=== PATIENT | female | born 1995 | race Two or more races ===

== ENCOUNTER 2018-01-28 18:16 | Emergency (ER) | payer MEDICAID ==
[2018-01-28] MEDS ORDERED: FAMOTIDINE 20 MG TABLET PO ONE (20:25)
[2018-01-28] MEDS ORDERED: METOCLOPRAMIDE HCL ORAL SOLN 10 MG/10 ML UDCUP PO ONE (20:25)
[2018-01-28] MEDS ORDERED: KETOROLAC TROMETHAMINE INJ/PF 30 MG/1 ML SDV IV ONE (20:25)
[2018-01-28] MEDS ORDERED: LIDOCAINE 2% VISCOUS SOLN 20 ML UDCUP PO ONE (20:25)
[2018-01-28] MEDS ORDERED: ACETAMINOPHEN 325 MG TABLET PO ONE (20:25)
[2018-01-28] MEDS ORDERED: ONDANSETRON HCL INJ/PF 4 MG/2 ML SDV IV ONE (20:25)
[2018-01-28] MEDS ORDERED: RINGERS SOLUTION,LACTATED 1,000 ML IV ONE (20:25)
[2018-01-28] MEDS ORDERED: MAG HYDROX/AL HYDROX/SIMETH SUSP 30 ML UDCUP PO ONE (20:25)
--- NOTE | 2018-01-28 20:28 | ER Document Report ---
ED General - General Chief Complaint: Abdominal Pain Stated Complaint: ABDOMEN PAIN Time Seen by Provider: 01/28/18 19:56 Notes: Patient is a 23 year old female without chronic medical problems who presents with multiple complaints. Her first complaint is 7 days of right lower abdominal pain. She describes this as an aching pain that is present mostly when her bladder is full and is otherwise effectively gone. She states that she generally has mild aches to the area when she does not have a full bladder but it is barely noticeable. Symptoms have overall been unchanged for the past 1 week. She states that she is a history of similar symptoms in the past with an ovarian cyst and with urinary tract infections. Her other complaint is approximately 10-14 days of epigastric abdominal discomfort. She describes this as a burning, aching pain worsened by eating. She states that sometimes she has associated vomiting when she eats. She has a history of reflux in the past but has not been on any medications for this in the recent past. She has not seen her general doctor regarding today's concerns. She has not had any fever or constitutional symptoms. No history of abdominal surgeries. TRAVEL OUTSIDE OF THE [place] IN LAST 30 DAYS: No - Related Data Allergies/Adverse Reactions: No Known Allergies Allergy (Unverified 01/28/18 18:45) Past Medical History - General Information source: Patient - Social History Smoking Status: Never Smoker Frequency of alcohol use: None Drug Abuse: None Lives with: Spouse/Significant other Family History: Reviewed & Not Pertinent Review of Systems - Review of Systems Notes: Constitutional: Negative for fever. HENT: Negative for sore throat. Eyes: Negative for visual changes. Cardiovascular: Negative for chest pain. Respiratory: Negative for shortness of breath. Gastrointestinal: Positive for abdominal pain and vomiting Genitourinary: Positive for dysuria. Musculoskeletal: Negative for back pain. Skin: Negative for rash. Neurological: Negative for headaches, weakness or numbness. 10 point ROS negative except as marked above and in HPI. Physical Exam - Vital signs Vitals: Temp Pulse Resp BP Pulse Ox 98.1 F 85 17 133/88 H 99 01/28/18 19:07 01/28/18 19:07 01/28/18 19:07 01/28/18 19:07 01/28/18 19:07 Interpretation: Normal Notes: PHYSICAL EXAMINATION: GENERAL: Well-appearing, well-nourished and in no acute distress. HEAD: Atraumatic, normocephalic. EYES: Pupils equal round and reactive to light, extraocular movements intact, sclera anicteric, conjunctiva are normal. ENT: nares patent, oropharynx clear without exudates. Moist mucous membranes. NECK: Normal range of motion, supple without lymphadenopathy LUNGS: Breath sounds clear to auscultation bilaterally and equal. No wheezes rales or rhonchi. HEART: Regular rate and rhythm without murmurs ABDOMEN: Soft, minimal right adnexal tenderness but no other localized areas of abdominal tenderness, normoactive bowel sounds. No guarding, no rebound. No masses appreciated. EXTREMITIES: Normal range of motion, no pitting or edema. No cyanosis. NEUROLOGICAL: No focal neurological deficits. Moves all extremities spontaneously and on command. PSYCH: Normal mood, normal affect. SKIN: Warm, Dry, normal turgor, no rashes or lesions noted. Course - Re-evaluation Re-evalutation: 01/28/18 20:26 Patient presents with 1 week of 2 distinct complaints Right lower abdominal pain: The patient presents with 1 week of intermittent right adnexal pain worsened by having a full bladder. She states when her bladder is not full she has minimal to no pain to the area. On abdominal examination she has no right lower quadrant tenderness only right adnexal tenderness and suprapubic abdominal tenderness. She states this feels similar when she had an ovarian cyst in the past and this does seem to be 1 of the most probable diagnoses. Very low clinical suspicion for tubo-ovarian abscess, ovarian torsion given clinical history, vitals and exam. I have a very low clinical suspicion for acute appendicitis given that her symptoms have been ongoing for 1 week, she has no right lower quadrant tenderness, and that the pain resolves effectively completely if she does not have a full bladder. Will obtain labs, urinalysis, testing, transvaginal ultrasound with ovarian Dopplers. Epigastric abdominal pain: The patient reports that she has had approximately 10 days of upper abdominal pain. Symptoms most consistent with likely gastritis. Patient has no upper abdominal tenderness on examination. Right upper quadrant ultrasound does not demonstrate any evidence of acute cholecystitis or cholelithiasis. Lipase is normal. No LFT changes. Based on history and exam, I do not suspect ACS, pulmonary embolus, SBO, mesenteric ischemia, acute pancreatitis, biliary pathology, or an abdominal aortic dissection. Patient has had improvement of symptoms here with a GI cocktail. 01/28/18 23:17 Patient has had significant improvement in her pain after receiving Toradol. Transvaginal exam does not demonstrate any acute pathology on a right ovarian cyst which is anticipated based on my pretest probability. The patient's urinalysis also shows findings consistent with a possible urinary tract infection. The patient has been started on cephalexin. I discussed will be follow-up regarding her right ovarian cyst. Patient overall feels much improved from time of presentation. Repeat abdominal exam remains benign with no focal tenderness to any part of her abdomen at this time. At this time will discharge with return precautions and follow-up recommendations. Verbal discharge instructions given a the bedside and opportunity for questions given. Medication warnings reviewed. Patient is in agreement with this plan and has verbalized understanding of return precautions and the need for primary care follow-up in the next 24-72 hours. 01/29/18 02:50 - Vital Signs Vital signs: Temp Pulse Resp BP Pulse Ox 98.3 F 78 15 109/66 97 01/28/18 23:35 01/28/18 23:35 01/28/18 23:35 01/28/18 23:35 01/28/18 23:35 - Laboratory Result Diagrams: 01/28/18 20:21 01/28/18 20:21 Laboratory results interpreted by me: 01/28/18 01/28/18 20:21 20:21 WBC 13.6 H MCV 79 L MCH 26.3 L Absolute Neutrophils 8.6 H Ur Leukocyte Esterase LARGE H - Diagnostic Test Radiology reviewed: Reports reviewed Discharge - Discharge Clinical Impression: Right ovarian cyst Urinary tract infection Qualifiers: Urinary tract infection type: acute cystitis Hematuria presence: without hematuria Qualified Code(s): N30.00 - Acute cystitis without hematuria Gastritis Qualifiers: Gastritis type: unspecified gastritis Chronicity: acute Gastritis bleeding: presence of bleeding unspecified Qualified Code(s): K29.00 - Acute gastritis without bleeding Condition: Good Disposition: HOME, SELF-CARE Additional Instructions: Your urine shows findings consistent with a urinary tract infection. Please take all the antibiotics as directed even if your symptoms have improved. Please follow-up with your primary care physician as needed. Return to emergency room if you develop fever >101F, persistent vomiting, become lethargic , have severe pain in your sides, or any other symptoms that are concerning to you. Your ultrasound also shows a right ovarian cyst which likely explains the pain you are having over the right lower side of your abdomen particular when your bladder is full. There is no direct treatment for the cyst as these usually resolve on their own. If you have recurrent problems with cysts you may wish to discuss going on continuous hormonal control with your OB to regulate your cycles and prevent recurrent cysts. Your symptoms appear to be most consistent with stomach or upper intestinal irritation. Please begin taking famotidine 40 mg in the morning and 40 mg at night. This medicine can be purchased directly [id number]. You may also take medicine such as Pepto-Bismol or Tums to assist with your pain. Please return to emergency department immediately if you have worsening of your pain, shortness of breath, vomiting, become unable to exert yourself due to pain or difficulty breathing, you pass out, or have any pain that radiates into your arms, jaw, or back. Please also return if you have any additional symptoms that are concerning to you. As we have discussed, the most important thing is lifestyle changes. You need to avoid smoking, sodas, tea, coffee, alcohol, spicy foods, and acidic foods such as citrus fruits, tomato based products, berries, and most fruit juices. Prescriptions: Cephalexin Monohydrate [Keflex 500 mg Capsule] 500 mg PO Q6H 5 Days capsule Famotidine 40 mg PO BID #60 tablet Sucralfate [Carafate 1 gm Tablet] 1 gm PO ACHS #120 tablet
[2018-01-28 20:36] LABS: ABSOLUTE BASOPHILS # (AUTO) 0.1 10^3/uL (0.0-0.2); ABSOLUTE EOSINOPHILS # (AUTO) 0.4 10^3/uL (0.0-0.6); ABSOLUTE LYMPHOCYTES (AUTO) 3.7 10^3/uL (0.5-4.7); ABSOLUTE MONOCYTES (AUTO) 0.8 10^3/uL (0.1-1.4); ABSOLUTE NEUT (AUTO) 8.6 10^3/uL (1.7-8.2); BASOPHILS % (AUTO) 0.6 % (0-2); EOSINOPHILS % (AUTO) 2.7 % (0-6); HEMATOCRIT 39.8 % (36.0-47.0); HEMOGLOBIN 13.3 g/dL (12.0-15.5); LYMPHOCYTES % (AUTO) 27.4 % (13-45); MEAN CORPUSCULAR HEMOGLOBIN 26.3 pg (27.0-33.4); MEAN CORPUSCULAR HGB CONC 33.3 g/dL (32.0-36.0); MEAN CORPUSCULAR VOLUME 79 fl (80-97); MONOCYTES % (AUTO) 5.8 % (3-13); PLATELET COUNT 325 10^3/uL (150-450); RED BLOOD COUNT 5.05 10^6/uL (3.72-5.28); RED CELL DISTRIBUTION WIDTH 13.5 % (11.5-14.0); SEGMENTED NEUTROPHILS % (AUTO) 63.5 % (42-78); TOTAL CELLS COUNTED % (AUTO) 100 %; WHITE BLOOD COUNT 13.6 10^3/uL (4.0-10.5)
[2018-01-28 20:39] LABS: APPEARANCE,URINE SLIGHTLY-CLOUDY; BILIRUBIN,URINE NEGATIVE (NEGATIVE); COLOR,URINE YELLOW; GLUCOSE, URINE NEGATIVE (NEGATIVE); KETONES,URINE NEGATIVE (NEGATIVE); LEUKOCYTE ESTERASE,URINE LARGE (NEGATIVE); NITRITE,URINE NEGATIVE (NEGATIVE); PROTEIN,URINE NEGATIVE (NEGATIVE); URINE SPECIFIC GRAVITY 1.019; UROBILINOGEN,URINE NEGATIVE mg/dL (<2.0)
[2018-01-28 21:12] LABS: ALANINE AMINOTRANSFERASE 24 U/L (9-52); ALBUMIN 3.8 g/dL (3.5-5.0); ALKALINE PHOSPHATASE 77 U/L (38-126); ANION GAP 12 (5-19); ASPARTATE AMINO TRANSFERASE 21 U/L (14-36); BILIRUBIN,DIRECT 0.3 mg/dL (0.0-0.4); BILIRUBIN,TOTAL 0.5 mg/dL (0.2-1.3); BLOOD UREA NITROGEN 13 mg/dL (7-20); CARBON DIOXIDE 24 mmol/L (22-30); CHLORIDE 104 mmol/L (98-107); GLUCOSE 86 mg/dL (75-110); POTASSIUM 4.3 mmol/L (3.6-5.0); SODIUM 139.5 mmol/L (137-145); TOTAL PROTEIN 7.1 g/dL (6.3-8.2)
[2018-01-28] MEDS ORDERED: CEPHALEXIN 500 MG CAPSULE PO ONE (22:28)
--- NOTE | 2018-01-28 22:38 | RADIOLOGY REPORT (SQ) ---
US ABDOMEN LIMITED HISTORY: Right upper quadrant pain. COMPARISON: None. TECHNIQUE: Grayscale and color Doppler imaging of the right upper quadrant was performed. FINDINGS: Liver is borderline enlarged, measuring 16.8 cm. Normal liver echogenicity. No perihepatic ascites is seen. No shadowing gallstones are seen. No pericholecystic fluid or gallbladder wall thickening. Common bile duct measures 3 mm. No intrahepatic biliary ductal dilatation. Visualized pancreas is unremarkable. Right kidney measures 9.8 cm in length, without hydronephrosis. Visualized portions of the IVC and aorta are patent. IMPRESSION: No cholelithiasis or acute cholecystitis.
--- NOTE | 2018-01-28 22:39 | RADIOLOGY REPORT (SQ) ---
US TRANSVAGINAL HISTORY: Right adnexal pain. COMPARISON: None. TECHNIQUE: Grayscale and color Doppler transvaginal ultrasound of the pelvis was performed. FINDINGS: The uterus is anteverted and measures 7.6 x 3.5 x 5.7 cm. The endometrium measures 1.5 cm in thickness. The right ovary measures 4.2 x 4.8 x 4.4 cm and contains a 2.9 x 2.7 x 2.6 cm dominant cyst. The left ovary measures 2.2 x 4.0 x 1.7 cm. Both ovaries contain normal follicles. Normal color Doppler flow is seen in both ovaries. Small amount of free fluid in the pelvic cul-de-sac, likely physiologic. IMPRESSION: 2.9 cm right ovarian cyst. Small amount of free fluid in the pelvic cul-de-sac, likely physiologic.
[2018-01-28 23:42] VITALS: BP 109/66
== END 2018-01-28 23:43 | disposition home or self-care (01) ==
LOC: ER 18:16
DX: N83.201 Unspecified ovarian cyst, right side (principal); N30.00 Acute cystitis without hematuria; K29.00 Acute gastritis without bleeding; R10.31 Right lower quadrant pain; M79.1 Myalgia; R11.10 Vomiting, unspecified; R30.0 Dysuria
CPT/HCPCS: 99284; 96361; 96374; 96375; 36415; 87086; 84703; 85025; 80053; 81001; 76705; 76830; 93976; J3490 ×5; J1885; J2405; J7120